=== PATIENT | female | born 2000 | race American Indian/Alaskan Native ===

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

== ENCOUNTER 2021-12-05 16:30 | Emergency (ER) | payer MEDICAID ==
[2021-12-05] MEDS ORDERED: Amoxicillin/Clavulanate K 875-125 MG Tab PO ONE (16:31)
[2021-12-05 16:42] VITALS: BP 117/75; PULSE 101
[2021-12-05] MEDS: Ketorolac 30 MG/ML SDV IM ONE (17:04)
[2021-12-05] MEDS: Amoxicillin/Clavulanate K 875-125 MG Tab PO ONE (17:04)
[2021-12-05] MEDS: Lidocaine 2% Viscous Solution 15 ML UD PO ONE (17:04)
[2021-12-05] MEDS ORDERED: Amoxicillin/Clavulanate K 875-125 MG Tab ONE (17:13)
== END 2021-12-05 17:15 | disposition home or self-care (01) ==
LOC: DL.ED 16:30
DX: K02.9 Dental caries, unspecified (principal); L08.9 Local infection of the skin and subcutaneous tissue, unspecified
CPT/HCPCS: 96372; 99282; A9270; J1885

== ENCOUNTER 2024-11-22 20:14 | Emergency (ER) | payer MEDICAID ==
[2024-11-22 20:58] VITALS: BP 125/74
[2024-11-22 22:05] VITALS: PULSE 97
== END 2024-11-22 22:02 | disposition home or self-care (01) ==
LOC: DL.ED 20:14
DX: B34.9 Viral infection, unspecified (principal); F17.200 Nicotine dependence, unspecified, uncomplicated; Z79.899 Other long term (current) drug therapy
CPT/HCPCS: 87081; 87428-QW; 87430; 99283; A9270-GY